=== PATIENT | female | born 1995 | race Two or more races ===

== ENCOUNTER 2024-07-04 09:19 | Emergency (ER) | payer OTHER ==
[2024-07-04 09:28] VITALS: BP 118/52; PULSE 88; RESP 20; TEMP 98.6; BMI 22.6
[2024-07-04] MEDS ORDERED: ONDANSETRON 4 MG/2 ML VIAL ONE (09:40)
[2024-07-04] MEDS: ONDANSETRON 4 MG/2 ML VIAL IVPUSH ONE (09:55)
[2024-07-04] MEDS: SODIUM CHLORIDE 0.9% 500 ML INFUS.BAG IV ONE (09:55)
[2024-07-04 10:03] LABS: BASO % 0.4 % (0-2.0); EOS % 0.1 % (0-4.5); HEMATOCRIT 41.2 % (32.4-45.2); HEMOGLOBIN 13.6 GM/dL (10.7-15.3); LYMPH % 6.4 % (8-40); MCH 28.9 pg (25.7-33.7); MCHC 32.9 g/dl (32.0-36.0); MEAN CELL VOLUME 87.7 fl (80-96); MEAN PLT VOLUME 8.7 fl (7.5-11.1); MONO % 3.4 % (3.8-10.2); NEUT % 89.7 % (42.8-82.8); PLATELET COUNT 277 10^3/uL (134-434); RDW 13.5 % (11.6-15.6); WHITE BLOOD COUNT 10.3 K/mm3 (4.0-10.0)
[2024-07-04 10:10] LABS: HCG,QUALITATIVE URINE Negative
[2024-07-04 10:21] LABS: EPI CELLS >36 /uL (0-25.1); HYALINE CASTS 1 /uL (0-3.1); PH,URINE 5.5 (5.0-8.0); POTASSIUM 4.5 mmol/L (3.5-5.1); URINE APPEARANCE CLEAR; URINE BACTERIA 690 /uL (0-1359); URINE BILIRUBIN NEGATIVE (NEGATIVE); URINE COLOR YELLOW; URINE GLUCOSE (UA) NEGATIVE (NEGATIVE); URINE KETONE 3+ (NEGATIVE); URINE LEUK ESTERASE NEGATIVE (NEGATIVE); URINE NITRITE NEGATIVE (NEGATIVE); URINE PROTEIN TRACE (NEGATIVE); URINE RBC 14 /uL (0-23.9); URINE UROBILINOGEN 0.2 mg/dL (0.2-1.0); URINE WBC 13 /uL (0-25.8)
[2024-07-04 10:24] LABS: BLOOD UREA NITROGEN 14.8 mg/dL (7-18); CALCIUM 9.2 mg/dL (8.5-10.1)
[2024-07-04 10:27] LABS: CREATININE 0.6 mg/dL (0.55-1.3)
[2024-07-04 10:29] LABS: TOT PROT 7.9 g/dl (6.4-8.2)
[2024-07-04] MEDS ORDERED: ACETAMINOPHEN INJECTION 100 ML ONE (10:59)
[2024-07-04] MEDS: ACETAMINOPHEN 1000 MG/100 ML BAG IVPB ONE (11:05)
== END 2024-07-04 12:17 | disposition home or self-care (01) ==
LOC: JER 09:19
PROC: 3E033NZ Introduction of Analgesics, Hypnotics, Sedatives into Peripheral Vein, Percutaneous Approach (ICD-10-PCS; principal; 2024-07-04)
PROC: 3E033GC Introduction of Other Therapeutic Substance into Peripheral Vein, Percutaneous Approach (ICD-10-PCS; 2024-07-04)
DX: A08.4 Viral intestinal infection, unspecified (principal); R11.2 Nausea with vomiting, unspecified; R10.11 Right upper quadrant pain; R10.13 Epigastric pain; Z20.822 Contact with and (suspected) exposure to COVID-19
CPT/HCPCS: 0241U-QW; 36415; 80053; 81003; 83690; 84703; 85025; 87086; 87186; 99284-25; J0131